=== PATIENT | female | born 1990 | race Caucasian/White ===

== ENCOUNTER 2018-03-27 15:20 | Emergency (ER) | payer BC, OTHER ==
[2018-03-27] MEDS: NICARDipine HCL 30 MG CAPSULE PO (16:58)
[2018-03-27 17:09] LABS: URINE BLOOD (Dip) POC 2+ (NEGATIVE); URINE GLUCOSE (Dip) POC Negative (NEGATIVE); URINE KETONES (Dip) POC 4+ (NEGATIVE); URINE LEUKOCYTE EST (Dip) POC Trace (NEGATIVE); URINE NITRITE (Dip) POC Negative (NEGATIVE); URINE TOTAL PROTEIN POC 1+ (NEGATIVE)
== END 2018-03-27 17:35 | disposition home or self-care (01) ==
LOC: E/R 15:20
DX: I10 Essential (primary) hypertension (principal)
CPT/HCPCS: 81003; 81025; 93005; 99283-25